=== PATIENT | male | born 1990 | race Caucasian/White ===

== ENCOUNTER 2023-05-30 12:15 | Emergency (ER) | payer OTHER, MEDICAID, SELFPAY ==
[2023-05-30 12:26] VITALS: BP 146/69; PULSE 72; RESP 16; TEMP 36.3; O2SAT 98; BMI 44.9
--- NOTE | 2023-05-30 12:52 | ED_ITS ---
HPI - General Adult General Chief complaint: Extremity Injury, Upper Stated complaint: ELECTRIAL SHOCK/BWC Time Seen by Provider: 05/30/23 12:33 Source: patient Mode of arrival: walk-in History of Present Illness HPI narrative: Patient is a 33-year-old male presents to the Emergency Room from his employer for evaluation of electrical shock. Patient's employer confirmed a 120 V to 1 to 1.5 amp supplied a machine that the patient was working on. 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 . Patient notes tthat his coworker received the majority of the shock but he felt the tingling sapping feeling in his fingertips. He denies any chest pain or palpitations. He has no skin injury. Patient states other mild upper respiratory/sinus congestion he has no other symptoms. Patient appears in no distress. Onset (ago): hour(s) Location: Denies head Quality: Denies burning or stabbing Pain Consistency: Denies constant Relieving factors: Denies none Exacerbating factors: Denies none Associated symptoms: Reports denies other symptoms Related Data Allergies Allergy/AdvReac Type Severity Reaction Status Date / Time amoxicillin AdvReac Unknown Verified 05/30/23 12:30 Review of Systems ROS Constitutional Denies: fever or chills Eyes Denies: change in vision Ears, nose, mouth, and throat Reports: nasal congestion; Denies: throat pain or neck pain Cardiovascular Denies: chest pain, palpitations or edema Gastrointestinal Denies: abdominal pain, nausea or vomiting Musculoskeletal Denies: back pain or neck pain Integumentary/Breast Denies: rash, itching or redness Neurological Denies: headache Psychiatric Denies: anxiety, mood swings or memory loss Endocrine Denies: excessive urination Hematologic/Lymphatic Denies: easy bruising Allergic/Immunologic Denies: hives Exam Narrative Exam Narrative: Nurses notes and vital signs reviewed and patient is not hypoxic. General: The patient appears well and in no apparent distress. Patient is resting comfortably on cart. Skin: Warm, dry, no pallor noted. Head: Normocephalic, atraumatic Neck: Supple, trachea mid-line, no tenderness, no lymphadenopathy Eye: Pupils are equal, round and reactive to light, EOMI Ears, Nose, Mouth, and Throat: external exam unremarkable Cardiovascular: Regular Rate and Rhythm Respiratory: Patient is in no distress, no accessory muscle use, lungs are clear to auscultation, no wheezing, rales or rhonchi. Chest Wall: no tenderness Back: non-tender, no CVA tenderness Musculoskeletal: normal ROM, no tenderness, no swelling, tingling to her fingertips is subsided. Patient has no evidence of skin injury or neurological. Neurological: A&O x4 Psychiatric: Cooperative Constitutional Vital Signs, click to edit/add: Last Vital Signs Temp 97.3 F L 05/30/23 12:26 Pulse 72 05/30/23 12:26 Resp 16 05/30/23 12:26 BP 146/69 H 05/30/23 12:26 Pulse Ox 98 05/30/23 12:26 O2 Del Method Room Air 05/30/23 12:26 Course Vital Signs Vital signs: Vital Signs Temperature 97.3 F L 05/30/23 12:26 Pulse Rate 72 05/30/23 12:26 Respiratory Rate 16 05/30/23 12:26 Blood Pressure 146/69 H 05/30/23 12:26 Pulse Oximetry 98 05/30/23 12:26 Oxygen Delivery Method Room Air 05/30/23 12:26 Temperature 97.3 F L 05/30/23 12:26 Pulse Rate 72 05/30/23 12:26 Respiratory Rate 16 05/30/23 12:26 Blood Pressure 146/69 H 05/30/23 12:26 Pulse Oximetry 98 05/30/23 12:26 Oxygen Delivery Method Room Air 05/30/23 12:26 Medical Decision Making MDM Narrative Medical decision making narrative: patient holding metal [employer] of equipment with coworker receiving blunt of electrical shock. Patient notes feeling a jolt to his fingertips. He has no chest pain or palpitations. Vitals stable. Recommend when necessary follow-up to occupational health clinic. Patient employer [employer] confirming amperage and voltage. Patient agreeable with discharge home with no concerns and no work restrictions. Discussed electrical safety. The patient is to followup with primary care physician in next 2-3 days or to return to the emergency department should any of the signs or symptoms worsen or new symptoms develop. Patient had questions answered. The patient agrees with the following Diagnosis and Treatment plan and the patient will be discharged home. Discharge Plan Discharge Chief Complaint: Extremity Injury, Upper Clinical Impression: Electric shock Patient Disposition: Home, Self-Care Time of Disposition Decision: 12:53 Condition: Good Instructions: Electrical Capps in Adults (ED) Stand Alone Forms: Portal Instructions Referrals: [facility] [Outside] - As needed Ladonna Delgado MD [Primary Care Provider] - 1 week
== END 2023-05-30 13:07 | disposition home or self-care (01) ==
PROVIDERS: Emergency Provider Emergency Medicine Emergency Medical Services; PCP Family Medicine
DX: T75.4XXA Electrocution, initial encounter (principal); W86.1XXA Exposure to industrial wiring, appliances and electrical machinery, initial encounter
CPT/HCPCS: 99282